=== PATIENT | male | born 1965 | race Caucasian/White ===

== ENCOUNTER 2016-12-25 11:18 | Emergency (ER) | payer MEDICAID, OTHER ==
[2016-12-25 11:18] VITALS: BMI 32.1
[2016-12-25 11:33] VITALS: O2SAT 95
--- NOTE | 2016-12-25 11:52 | C.PDOC ---
History Of Present Illness 51 y/o male presents to ED requesting pain medication for right low back pain radiating to right leg intermittent for 6 months after falling from tree in [place]. Patient describes pain as shooting and tingling. Patient reports he had a MRI in [place] and knows he has lumbar disc problems. Patient denies new injuries or any other complaints at this time. Time Seen by Provider: 12/25/16 11:43 Chief Complaint (Nursing): Lower Extremity Problem/Injury History Per: Patient History/Exam Limitations: no limitations Onset/Duration Of Symptoms: Intermittent Episodes Current Symptoms Are (Timing): Still Present Past Medical History Reviewed: Historical Data, Nursing Documentation, Vital Signs Vital Signs: Last Vital Signs Temp 98.6 F 12/25/16 11:32 Pulse 91 H 12/25/16 11:32 Resp 20 12/25/16 11:32 BP 112/73 12/25/16 11:32 Pulse Ox 95 12/25/16 12:24 - Medical History PMH: Seizures (last seizure 1 yr ago) Family History: States: Unknown Family Hx - Social History Hx Tobacco Use: Yes Hx Alcohol Use: No Hx Substance Use: No - Immunization History Hx Tetanus Toxoid Vaccination: No Hx Influenza Vaccination: No Hx Pneumococcal Vaccination: No Review Of Systems Except As Marked, All Systems Reviewed And Found Negative. Constitutional: Negative for: Fever, Chills Musculoskeletal: Positive for: Back Pain, Leg Pain. Negative for: Neck Pain Neurological: Negative for: Weakness, Numbness Physical Exam - Physical Exam Appears: Other (In mild pain) Skin: Normal Color, Warm Head: Atraumatic, Normacephalic Neck: No Midline Cervical Tenderness Cardiovascular: Rhythm Regular, No Murmur Respiratory: Normal Breath Sounds, No Rales, No Rhonchi, No Wheezing Gastrointestinal/Abdominal: Soft, No Tenderness, No Guarding, No Rebound Back: Paraspinal Tenderness (Lumbar paraspinal tenderness around L4-L5 area) Extremity: Capillary Refill (<2 seconds), No Swelling, Other (Full rom of right hip) Neurological/Psych: Oriented x3, Normal Motor (5/5), Normal Sensation Gait: Steady ED Course And Treatment O2 Sat by Pulse Oximetry: 95 (RA) Progress Note: Patient givedn Toradol IM and Flexeril, Prednisone PO. Patient was re-ealuated and felt better so was d/c home with prescriptions for pain Disposition Counseled Patient/Family Regarding: Studies Performed, Diagnosis, Need For Followup, Rx Given - Disposition Referrals: Igor Antoine MD [Medical Doctor] - Disposition: HOME/ ROUTINE Disposition Time: 12:40 Condition: STABLE Additional Instructions: FOLLOW UP WITH YOUR DOCTOR IN 1-2 DAYS USE MEDICATIONS DIRECTED RETURN TO ER IF SYMPTOMS WORSEN Prescriptions: Cyclobenzaprine [Cyclobenzaprine HCl] 10 mg PO BID PRN #15 tab PRN Reason: Muscle Spasm Naproxen [Naprosyn Tab] 375 mg PO BID PRN #20 tab PRN Reason: pain predniSONE [predniSONE Tab] 40 mg PO DAILY #6 tab Instructions: Sciatica (ED), Lumbar Radiculopathy (ED) Print Language: MALAY - POA Present On Arrival: None - Clinical Impression Clinical Impression: Sciatica of right side, Lumbar radiculopathy - Scribe Statement The provider has reviewed the documentation as recorded by the Katie Sheikh All medical record entries made by the Katie were at my direction and personally dictated by me. I have reviewed the chart and agree that the record accurately reflects my personal performance of the history, physical exam, medical decision making, and the department course for this patient. I have also personally directed, reviewed, and agree with the discharge instructions and disposition.
[2016-12-25 13:20] VITALS: BP 110/73; PULSE 78; RESP 18; TEMP 97.8
== END 2016-12-25 12:40 | disposition home or self-care (01) ==
LOC: C.ER 11:18
DX: M54.31 Sciatica, right side (principal); M54.16 Radiculopathy, lumbar region
CPT/HCPCS: 96372; 99284; J1885

== ENCOUNTER 2016-12-30 19:42 | Emergency (ER) | payer MEDICAID, OTHER ==
[2016-12-30 19:43] VITALS: BMI 32.1
--- NOTE | 2016-12-30 20:23 | C.PDOC ---
History Of Present Illness Patient is a 51 y/o male with chronic back problem presents to the ED for evaluation of right lower back pain radiating down to right leg for the last 2 days. Describes discomfort as tingling sensation to the RLE, and is worse with movement, sitting, and standing after sitting position. Pt notes having MRI of his back done this month which shows disk herniation. Notes taking unknown medications today for his pain without any improvement. Pt states he was seen here last week with similar symptoms. Otherwise, denies any new injuries, trauma , extremity weakness/numbness, urinary retention, bowel/bladder incontinence, fever, or chills. Time Seen by Provider: 12/30/16 20:01 Chief Complaint (Nursing): Lower Extremity Problem/Injury History Per: Patient History/Exam Limitations: no limitations Onset/Duration Of Symptoms: Days (2) Current Symptoms Are (Timing): Still Present Recent travel outside of the [place]: No Additional History Per: Patient Past Medical History Reviewed: Historical Data, Nursing Documentation, Vital Signs Vital Signs: Last Vital Signs Temp 97.9 F 12/30/16 20:56 Pulse 83 12/30/16 20:56 Resp 20 12/30/16 20:56 BP 118/80 12/30/16 20:56 Pulse Ox 98 12/30/16 20:56 - Medical History PMH: Seizures (last seizure 1 yr ago) Family History: States: Unknown Family Hx - Social History Hx Tobacco Use: Yes Hx Alcohol Use: No Hx Substance Use: No - Immunization History Hx Tetanus Toxoid Vaccination: No Hx Influenza Vaccination: No Hx Pneumococcal Vaccination: No Review Of Systems Constitutional: Negative for: Fever Genitourinary: Negative for: Dysuria, Frequency, Incontinence, Hematuria Musculoskeletal: Positive for: Back Pain (right lower), Leg Pain (right) Skin: Negative for: Rash, Bruising Neurological: Negative for: Weakness, Numbness Physical Exam - Physical Exam Appears: Non-toxic, No Acute Distress Skin: Normal Color, Warm, Dry Eye(s): bilateral: Normal Inspection, PERRL Back: No CVA Tenderness, No Vertebral Tenderness, Paraspinal Tenderness (right lumbar) Extremity: Normal ROM (Pain with ROM of right leg), Capillary Refill (< 2 sec.) , No Deformity, No Swelling Extremity: Bilateral: Atraumatic, Normal Color And Temperature, Normal ROM Pulses: Left Dorsalis Pedis: Normal, Right Dorsalis Pedis: Normal Neurological/Psych: Oriented x3, Normal Speech, Normal Motor, Normal Sensation Gait: Steady ED Course And Treatment O2 Sat by Pulse Oximetry: 99 (RA) Pulse Ox Interpretation: Normal Progress Note: Patient was given Tramadol. On reassessment, patient is resting comfortably, with improvement of back pain. Patient remains afebrile, with no bony tenderness, extremity numbness or weakness, or abdominal pain. Patient is ambulatory in the emergency department with no signs of discomfort. Patient was advised to follow up with physician/clinic in 1-2 days. 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 - Scribe Statement The provider has reviewed the documentation as recorded by the Scribe Trish George All medical record entries made by the Kannanibwillis were at my direction and personally dictated by me. I have reviewed the chart and agree that the record accurately reflects my personal performance of the history, physical exam, medical decision making, and the department course for this patient. I have also personally directed, reviewed, and agree with the discharge instructions and disposition.
[2016-12-30 20:58] VITALS: BP 118/80; PULSE 83; RESP 20; TEMP 97.9
[2016-12-30 21:00] VITALS: O2SAT 99
== END 2016-12-30 20:57 | disposition home or self-care (01) ==
LOC: C.ER 19:42 → EDBD 19:42 → C.ER 20:57
DX: M54.16 Radiculopathy, lumbar region (principal)